=== PATIENT | male | born 1950 | race Caucasian/White ===

== ENCOUNTER 2021-05-08 08:22 | Observation (INO) ==
--- NOTE | 2021-05-07 17:01 | History & Physical Bridge Note ---
Date of Service May 07, 2021 History & Physical Bridge Note I have examined the patient, reviewed the History & Physical and in the interval since the performance of the History & Physical I have noted the following changes of clinical significance: no changes noted Results of Lexiscan nuclear stress test from May 02, 2021 noted below: Abnormal low intensity exercise/Lexiscan myocardial perfusion imaging study with evidence of a moderate-sized lateral reversible perfusion defect consistent with ischemia in the circumflex coronary territory. Quantitative analysis suggests that 30% of the circumflex territory is involved and that is completely reversible. Gated SPECT imaging reveals normal myocardial thickening and wall motion. The left ventricular ejection fraction was calculated to be 72%.
--- NOTE | 2021-05-08 09:45 | Pre Anesthesia Assessment ---
Date of Service May 08, 2021 Pre Sedation Assessment Vital Signs Temp Pulse Pulse Resp BP Pulse Ox Pulse Ox 05/09/21 07:47 157/89 H 05/09/21 07:44 36.5 C 63 16 95 05/09/21 03:15 36.7 C 72 16 138/81 97 05/08/21 23:04 36.6 C 58 L 20 126/80 96 05/08/21 23:00 67 05/08/21 19:50 36.8 C 60 18 120/64 96 05/08/21 17:03 65 05/08/21 15:54 36.8 C 65 18 138/73 98 98 05/08/21 14:45 60 16 118/69 95 05/08/21 14:30 59 L 16 119/75 95 05/08/21 14:15 57 L 16 122/73 95 05/08/21 14:00 53 L 16 123/70 95 05/08/21 13:45 53 L 16 128/72 95 05/08/21 13:30 70 16 115/67 95 05/08/21 13:15 59 L 16 113/75 95 05/08/21 13:00 58 L 16 111/63 95 05/08/21 12:45 75 16 127/76 95 05/08/21 12:30 66 16 128/65 95 05/08/21 12:15 69 16 121/71 94 05/08/21 12:00 58 L 16 105/67 94 05/08/21 11:45 59 L 16 109/55 L 94 05/08/21 11:30 65 16 112/65 94 Cardiovascular + regular rate and + regular rhythm + S1 normal, + S2 normal and + murmur (1/6 [place]) + PMI normal + femoral pulses present and + radial pulses present no edema Respiratory + respiratory effort normal; no respiratory distress, no labored breathing and no retractions no crackles, no rales, no rhonchi and no wheezes Pre-Sedation Airway Assessment Smoking Status: Never smoker Hx Sleep Apnea: No Short, Thick Neck: No Thyromental Distance: > or= 3.5 Finger Breadths Oral Cavity: + WNL Mallampati Class: II ASA: ASA3 NPO Status Date of Last Intake of Fluids: 05/08/21 Time of Last Intake of Fluids: 07:00 Last Oral Intake of Fluids Comment: sip with meds Date of Last Intake of Solid Food: 05/07/21 Time of Last Intake of Solid Foods: 22:00 Procedure Planning Contraindications for Sedation: none Current Medications Reviewed: Yes Notes The planned sedation has been discussed with the patient. Informed Consent was obtained. I have identified the patient, determined the appropriateness of sedation and have assessed the patient immediately prior to the procedure. All medicine(s) and interventions are by my order.
[2021-05-08] MEDS ORDERED: niCARdipine HCL INJ 2.5 MG/ML 10 ML AMP ONE (09:50)
[2021-05-08] MEDS ORDERED: fentaNYL citrate 100 MCG/2 ML VIAL ONE (09:50)
[2021-05-08] MEDS ORDERED: HEPARIN (PORCINE) 1000 UNIT/ML 10 ML (CATH LAB USE ONLY) ONE (09:50)
[2021-05-08] MEDS ORDERED: MIDAZOLAM HCL 1 MG/ML 2ML VIAL ONE (09:50)
[2021-05-08] MEDS ORDERED: NITROGLYCERIN/D5W 100MCG/ML 20ML SYR ONE (09:51)
--- NOTE | 2021-05-08 10:39 | Post Anesthesia Assessment ---
Date of Service May 08, 2021 Post Sedation Assessment Vital Signs Temp Pulse Pulse Resp BP Pulse Ox Pulse Ox 05/09/21 07:47 157/89 H 05/09/21 07:44 36.5 C 63 16 95 05/09/21 03:15 36.7 C 72 16 138/81 97 05/08/21 23:04 36.6 C 58 L 20 126/80 96 05/08/21 23:00 67 05/08/21 19:50 36.8 C 60 18 120/64 96 05/08/21 17:03 65 05/08/21 15:54 36.8 C 65 18 138/73 98 98 05/08/21 14:45 60 16 118/69 95 05/08/21 14:30 59 L 16 119/75 95 05/08/21 14:15 57 L 16 122/73 95 05/08/21 14:00 53 L 16 123/70 95 05/08/21 13:45 53 L 16 128/72 95 05/08/21 13:30 70 16 115/67 95 05/08/21 13:15 59 L 16 113/75 95 05/08/21 13:00 58 L 16 111/63 95 05/08/21 12:45 75 16 127/76 95 05/08/21 12:30 66 16 128/65 95 05/08/21 12:15 69 16 121/71 94 05/08/21 12:00 58 L 16 105/67 94 05/08/21 11:45 59 L 16 109/55 L 94 05/08/21 11:30 65 16 112/65 94 Recovery Score Activity: Moves 4 extremities Respiration: Deep Breath/Cough Circulation: +/-20% PreAnes Value Consciousness: Fully Awake Oxygen Saturation: > 92% On Room Air Discharge Sedation Level of Care: Phase I Post Sedation Plan On clinical assessment, the patient appears to have tolerated the sedation without complications. Patient is recovering as anticipated. Patient will continue to be monitored by nursing and may be discharged when sedation discharge criteria are met per below protocol. Upon Completions of procedure up to 15 minutes continue every 5 minute vital signs and the P.A.R. score; then discharge to a Phase I or Fast Track to Phase II per the following guidelines: * Discharge Patient to appropriate Phase II area if PAR is 8 or greater or return to pre- procedure baseline. The post - procedure orders will be as directed. * If PAR score is less than 8 or not return to pre-procedure baseline then patient will follow Phase I monitoring till PAR is reached for Phase II. The Phase I may be done in procedure room or may call to secure a Phase I area. * If naloxone or flumazenil are used for reversal, hold in Phase I for continued monitoring from when last reversal dose was given for a minimum of 60 minutes or longer pending the nurse and/or physician discretion of patient condition before discharge to Phase II. Please call the Sedation Physician to re-evaluate and complete post-note for discharge to Phase II area. Do NOT discharge from procedure sedation or Phase 1 until post- sedation evaluation note is complete by procedure /sedation MD Sedation Discharge Instructions to be given to the patient at discharge to home.
--- NOTE | 2021-05-08 10:53 | Cardiac Catheterization ---
Cardiac Cath Procedure Full Procedure Date May 08, 2021 Pre-Procedure Diagnosis Pre-Procedure Diagnosis: Angina and Positive Stress Test AUC Score AUC Score: 7 Post-Procedure Diagnosis Post-Procedure Diagnosis: Severe CAD and Elevated Intracardiac Pressures Procedure(s) Performed Procedure(s) Performed: Coronary Angiography and Left Heart Cath Manager Diabetes Von Cote DO Supervisor Sewer Maintenance(s) Kenroy RTKaterina Estimated Blood Loss Estimated Blood Loss: 6cc Medication(s) Medication(s): Fentanyl, Heparin, Lidocaine 1%, Nicardipine, Nitroglycerin and Versed Summary of Findings 80% mid Lcx Hemodynamics Rest Ao:: 90/47/72 Final Ao: 103/51/71 LV: 102/3/14 Recommendations Recommendations: PCI without planned CABG Specimens Specimens: None Radiation Exposure (mGy) 1213 Contrast (mls) 50 Fluids (cc crystalloids) Fluids (cc crystalloids): 70 Nss Drains Drains: N/A Anesthesia Moderate sedation. Start 1009. End 1054. Sedation monitor: Iker PEREIRA Procedural Complication(s) None Disposition Patient remained in [facility] for PCI of the left circumflex I attest to the content of the Intraoperative Record and any orders documented therein. Any exceptions are noted below. ACC Data: [facility] Cardiac Status Clinical evaluation leading to the procedure 69-year-old gentleman seen in the emergency department regarding chest pain. Discharge from the ER follow-up with cardiology the following day. Lexiscan nuclear stress test performed for further stratification demonstrating moderate lateral wall reversible defect suggesting circumflex territory ischemia. CAD Presenation: Positive Stress Test and Unstable angina Anginal Classification: CCS IV Heart Failure: No Coronary Anatomy Dominant: Right Left Main (% Stenosis): Normal LAD (% Stenosis): Mid (30% early mid, 30% late mid) and Distal (40%) D1 (% Stenosis): Normal Circumflex (% Stenosis): Mid (80%) and Distal (30%) L PL1 (% Stenosis): Normal L PL2 (% Stenosis): Normal RCA (% Stenosis): Proximal (10%), Mid (20% diffuse) and Distal (10%) R PDA (% Stenosis): Normal R PL1 (% Stenosis): Normal R PL2 (% Stenosis): Normal Ramus (% Stenosis): Normal Diagnostic Physicians Name: Von Cote DO Closure Device Percutaneous Entry Location: Radial Closure Device: Radial Band Recommendations: PCI without planned CABG Intraprocedure Events Significant Disection: No Perforation: No
[2021-05-08] MEDS ORDERED: CLOPIDOGREL BISULFATE 300 MG TAB ONE (11:19)
--- NOTE | 2021-05-08 12:54 | Post Anesthesia Assessment ---
Date of Service May 08, 2021 Post Sedation Assessment Vital Signs Temp Pulse Resp BP Pulse Ox 05/08/21 12:45 75 16 127/76 95 05/08/21 12:30 66 16 128/65 95 05/08/21 12:15 69 16 121/71 94 05/08/21 12:00 58 L 16 105/67 94 05/08/21 11:45 59 L 16 109/55 L 94 05/08/21 11:30 65 16 112/65 94 05/08/21 08:34 97.9 F 63 16 145/75 H 97 Recovery Score Activity: Moves 4 extremities Respiration: Deep Breath/Cough Circulation: +/-20% PreAnes Value Consciousness: Fully Awake Oxygen Saturation: > 92% On Room Air Post Anesthesia Score: 10 Discharge Sedation Level of Care: Phase I Post Sedation Plan On clinical assessment, the patient appears to have tolerated the sedation without complications. Patient is recovering as anticipated. Patient will continue to be monitored by nursing and may be discharged when sedation discharge criteria are met per below protocol. Upon Completions of procedure up to 15 minutes continue every 5 minute vital signs and the P.A.R. score; then discharge to a Phase I or Fast Track to Phase II per the following guidelines: * Discharge Patient to appropriate Phase II area if PAR is 8 or greater or return to pre- procedure baseline. The post - procedure orders will be as directed. * If PAR score is less than 8 or not return to pre-procedure baseline then patient will follow Phase I monitoring till PAR is reached for Phase II. The Phase I may be done in procedure room or may call to secure a Phase I area. * If naloxone or flumazenil are used for reversal, hold in Phase I for continued monitoring from when last reversal dose was given for a minimum of 60 minutes or longer pending the nurse and/or physician discretion of patient condition before discharge to Phase II. Please call the Sedation Physician to re-evaluate and complete post-note for discharge to Phase II area. Do NOT discharge from procedure sedation or Phase 1 until post- sedation evaluation note is complete by procedure /sedation MD Sedation Discharge Instructions to be given to the patient at discharge to home.
--- NOTE | 2021-05-08 12:59 | Cardiac Catheterization ---
[facility] Data: Real Estate Consultant Cardiac Status Clinical evaluation leading to the procedure Diagnostic Physicians Name: Michael Child MD Closure Device Recommendations: PCI without planned CABG Cardiac Cath Procedure Full Procedure Date May 08, 2021 Pre-Procedure Diagnosis Pre-Procedure Diagnosis: Angina and Positive Stress Test AUC Score AUC Score: 7 Post-Procedure Diagnosis Post-Procedure Diagnosis: Severe CAD and Successful PCI Procedure(s) Performed Procedure(s) Performed: Coronary Angiography and Drug Eluting Stent Fibrous Plasterer Michael Child MD Marine Water Tender(s) Kenroy RTR Estimated Blood Loss Estimated Blood Loss: 10 Medication(s) Medication(s): Fentanyl, Heparin, Nicardipine, Nitroglycerin and Versed Summary of Findings Indication: Angina, abnormal stress test with lateral ischemia Access: 6 Fr right radial artery Catheters: EBU 3.5 guide Findings: For full details of patient's coronary angiography please see cath report dictated by Dr. Cote. Briefly, patient found to have severe single-vessel disease with 80% mid circumflex stenosis. Decision to proceed with PCI. -- PCI -- Antithrombotic therapy: Heparin, clopidogrel Procedure: Left main cannulated with EBU 3.5 guide Loss Prevention Coordinator 50 wire passed across lesion into distal vessel Mid circumflex lesion predilated with 2.5 compliant balloon Dilated lesion stented with 2.5 x 18 mm [place] drug-eluting stent Stent post-dilated with 2.75 noncompliant balloon IC vasodilators administered for spasm Post procedure ALMA ROSA 3 flow, stent well expanded with minimal residual stenosis and no apparent cardiac complications. Arterial Closure: TR band Summary: 1. Successful PCI of mid circumflex with single drug-eluting stent (2.5 x 18 mm Bryant; postdilated with a 2.75 NC). Recommendations: Loaded with clopidogrel 600 mg in Real Estate Consultant Consult cardiac Rehab Recommendations Recommendations: PCI without planned CABG Specimens Specimens: None Fluids (cc crystalloids) Fluids (cc crystalloids): 70 Nss Drains Drains: N/A Anesthesia Moderate sedation. Start 1009. End 1054. Sedation monitor: Iker PEREIRA Procedural Complication(s) None Disposition Patient remained in [facility] for PCI of the left circumflex I attest to the content of the Intraoperative Record and any orders documented therein. Any exceptions are noted below. PG Care Time/CCT Total # of Minutes Spent Total Time Spent with Patient: Total time spent is greater than 50% in coordination of care (as documented) at patient's floor/unit and/or counseling patient:
[2021-05-08] MEDS ORDERED: ACETAMINOPHEN 325 MG TAB PO PRN (15:54)
[2021-05-08] MEDS ORDERED: ONDANSETRON INJ 2 MG/ML 2 ML VIAL IV PRN (15:54)
[2021-05-08] MEDS ORDERED: NITROGLYCERIN SL 0.4 MG/TAB TAB SL PRN (15:54)
[2021-05-08] MEDS ORDERED: PHARMACY GLYCEMIC MGMT CONSULT PRN (16:07)
[2021-05-08] MEDS ORDERED: LORazepam 0.5 MG TAB PO PRN (16:17)
--- NOTE | 2021-05-08 16:23 | History & Physical Report ---
Date of Service May 08, 2021 Assessment & Plan (1) Coronary artery disease with exertional angina: (2) Hypertension: (3) Hyperlipidemia: (4) Diabetes: Plan: (1) Coronary artery disease with exertional angina: -As noted, cardiac catheterization revealed culprit 80% mid circumflex stenosis, the correlated with recent myocardial perfusion imaging study well. Mild nonobstructive disease noted elsewhere as per cath report. Continue aspirin 81 mg daily, clopidogrel 75 mg daily (loaded in Weatherization Coordinator), metoprolol, atorvastatin. Repeat EKG on arrival to telemetry floor, and in a.m. (2) Hypertension: -Continue metoprolol, hold lisinopril HCTZ, pending results of creatinine tomorrow. Received 350 ml NS in post cath recovery unit. Will administer another liter IV. -Has history of stage IIIa CKD, creatinine 1.44 04/30/2021. (3) Hyperlipidemia: -Continue atorvastatin 40 mg daily, most recent LDL cholesterol, November,, 45 mg/dL (4) Diabetes: -Patient takes Lantus 55 units daily, and NovoLog 16 units with the evening meal at home. -Consult pharmacy with regards to assistance with glycemic control. CODE STATUS: Full code DVT prophylaxis: Not indicated, patient ambulatory, anticipate discharge 05/09/2021 Hepatitis screening: Previously performed as outpatient Admission and Anticipated Discharge Date Admission Date: May 08, 2021 History of Present Illness Primary Care Provider: Miguel Ángel Grubbs DO Ramon Vanessa is a 70 year old male who been seen by the undersigned in outpatient cardiology consultation a week ago on 05/01/2021 for recent episodes of chest discomfort. He went on to have a nuclear stress test with findings of reversible perfusion defect in the lateral wall consistent with circumflex coronary territory ischemia. He underwent diagnostic cardiac catheterization today with findings of a culprit 80% mid circumflex stenosis for which he underwent PCI and deployment of a single drug-eluting stent. He was already on aspirin. He received clopidogrel 600 mg in the cardiac catheterization laboratory at time of PCI. Post procedure he was feeling well, and had already completed the post procedure radial artery recovery protocol. Initial plan was for him to proceed with same day discharge, however patient did not have a ride or adult to accompany him home this evening and therefore he is to remain in the hospital for observation as per policy as medically appropriate. At the time my assessment and the cardiac catheterization recovery area, patient's radial artery band had already been removed, and he is feeling well. Denies any angina. Vital signs stable. Allergies Allergy/AdvReac Type Severity Reaction Status Date / Time adhesive tape Allergy Intermediate RASH/BLISTERS Verified 05/08/21 08:57 SKIN Home Medications Medication Instructions Recorded Confirmed Type aspirin 81 mg tablet,delayed 81 mg PO DAILY 04/30/21 05/08/21 History release atorvastatin 40 mg tablet 40 mg PO HS 04/30/21 05/08/21 History escitalopram oxalate 20 mg tablet 20 mg PO DAILY 04/30/21 05/08/21 History finasteride 5 mg tablet 5 mg PO DAILY 04/30/21 05/08/21 History insulin aspart U-100 100 unit/mL 16 unit SUBCUT QDD 04/30/21 04/30/21 History (3 mL) subcutaneous pen (Novolog Flexpen U-100 Insulin aspart) insulin glargine 100 unit/mL (3 See Rx Instructions .ROUTE .COMPLEX 04/30/21 04/30/21 History mL) subcutaneous pen (Lantus Solostar U-100 Insulin) lisinopril 20 1 tab PO DAILY 04/30/21 05/08/21 History mg-hydrochlorothiazide 25 mg tablet loratadine 10 mg chewable tablet 10 mg PO DAILY 04/30/21 05/08/21 History (Claritin) lorazepam 1 mg tablet 0.5 mg PO TID PRN 04/30/21 05/08/21 History tamsulosin 0.4 mg capsule 0.4 mg PO DAILY 04/30/21 05/08/21 History clopidogrel 75 mg tablet 75 mg PO DAILY #30 tab 05/08/21 Rx Past Med/Surg History Medical History Diabetes Hypertension Surgical History No significant past surgical history Social History Smoking Status: Never smoker Hx Alcohol Use: No Hx Substance Use: No marital status: Single Current Living Situation: Alone current occupational status: retired Feels Safe at Home: Yes Safety Concerns: Feels Safe At This Time Review of Systems Review of Systems: All systems reviewed & are unremarkable except as noted in HPI & below Physical Exam Constitutional: WD/WN, vitals as above Respiratory: normal respiratory effort, lungs clear to auscultation Cardiovascular: RRR, no murmur, no edema Gastrointestinal (Abdomen): normal bowel sounds, soft, nontender, no hepatosplenomegaly Skin: Right radial arterial access site, clean dry and intact, no hematoma Neurologic: PERRL, EOMI, accommodation nl, no face palsy, no dysarthria Results & Data Results & Data ([facility]) Vital Signs (Past 12 Hours) Vital Signs Temp Pulse Resp BP Pulse Ox 05/08/21 14:45 60 16 118/69 95 05/08/21 14:30 59 L 16 119/75 95 05/08/21 14:15 57 L 16 122/73 95 05/08/21 14:00 53 L 16 123/70 95 05/08/21 13:45 53 L 16 128/72 95 05/08/21 13:30 70 16 115/67 95 05/08/21 13:15 59 L 16 113/75 95 05/08/21 13:00 58 L 16 111/63 95 05/08/21 12:45 75 16 127/76 95 05/08/21 12:30 66 16 128/65 95 05/08/21 12:15 69 16 121/71 94 05/08/21 12:00 58 L 16 105/67 94 05/08/21 11:45 59 L 16 109/55 L 94 05/08/21 11:30 65 16 112/65 94 05/08/21 08:34 36.6 C 63 16 145/75 H 97 Laboratory Results Preprocedure Covid screen negative. Code Status & VTE Plan VTE Prophylaxis Plan VTE Prophylaxis will be ordered: No
[2021-05-08] MEDS ORDERED: SODIUM CHLORIDE 0.9% 1000ML 1,000 ML IV SCH (16:30)
[2021-05-08] MEDS ORDERED: DEXTROSE 50% 50 ML SYRINGE IV PRN (16:45)
[2021-05-08] MEDS ORDERED: GLUCOSE 10 TABS/TUBE PO PRN (16:45)
[2021-05-08] MEDS ORDERED: GLUCAGON FOR INJ 1 MG VIAL IM PRN (16:45)
[2021-05-08] MEDS ORDERED: GLUCOSE 40% GEL 15 GM TUBE PO PRN (16:45)
[2021-05-08] MEDS ORDERED: CARBOHYDRATES FOR HYPOGLYCEMIA PO PRN (16:45)
--- NOTE | 2021-05-08 17:05 | Electrocardiogram Report ---
Test Reason : Blood Pressure : / mmHG Vent. Rate : 066 BPM Atrial Rate : 066 BPM P-R Int : 204 ms QRS Dur : 080 ms QT Int : 390 ms P-R-T Axes : 067 027 036 degrees QTc Int : 408 ms Sinus rhythm with Premature atrial complexes Poor R wave progression, consider anterior PR vs. lead placement vs. LVH Abnormal ECG When compared with ECG of 30-APR-2021 15:06, ST no longer elevated in Inferior leads ST no longer depressed in Lateral leads Confirmed by Michael Corbett ([id number]) on 05/08/2021 5:05:18 PM Referred By: Arsen Garcia Confirmed By:Porfirio Corbett
--- NOTE | 2021-05-08 17:11 | Communication Note ---
Date of Service: May 08, 2021 EKG reviewed, SR with PACs, stable findings.
--- NOTE | 2021-05-08 17:18 | Pharmacy Report ---
Pharmacy Glycemic Short Note 2 - Date of Service May 08, 2021 - Glycemic Short BSG Results (Last 24 hours): 05/08/21 16:42 POC Glucose 173 H OUTPATIENT ANTIDIABETIC REGIMEN: * Lantus 25 units SC AM + 30 units SC PM * Novolog 16 units SC w/ biggest meal of the day (supper) * HbA1c pending ASSESSMENT: * 70 yo M admitted s/p cardiac catheterization today. Pharmacy has been consulted to assist with inpatient glycemic management. * Patient is ordered a T2DM/Heart Healthy diet post-op. Post op BSG was 173 mg/dL. Did not take AM dose of Lantus so likely basal deficient. * Will give full home dose of Lantus 30 units this evening. Will allow floor pharmacist to determine need for further basal dosing tomorrow morning. * Novolog sliding scale insulin will be administered with meals based on weight and stress of 2. Will add an overnight check for tonight only. PLAN FOR INPATIENT GLYCEMIC CONTROL: * Basal insulin * Lantus 30 units SC HS * Bolus insulin * NovoLog per scale ACHS or Q6hrs while NPO * Goal Range: Low 110 mg/dL - High 140 mg/dL * Correction Factor: 25 mg/dL/unit * Nutritional / Prandial insulin per carb ratio of 1 unit per 8 grams CHO consumed
[2021-05-08] MEDS: INSULIN ASPART PER UNIT SC SCH ×2 (17:38→21:40)
[2021-05-08] MEDS ORDERED: ATORVASTATIN 40 MG TAB PO SCH (21:00)
[2021-05-08] MEDS ORDERED: INSULIN GLARGINE SOLOSTAR 100 UNITS/ML 3 ML PEN SC SCH ×2 (21:00)
[2021-05-08] MEDS ORDERED: INSULIN ASPART PER UNIT SC SCH (21:00)
[2021-05-09] MEDS ORDERED: INSULIN ASPART PER UNIT SC SCH (02:00)
[2021-05-09 07:32] LABS: Estimated Average Glucose 180 mg/dl; Hemoglobin A1C 7.9 % (4.5-5.6)
[2021-05-09 07:35] LABS: Hematocrit (blood only) 39.8 % (42-52); Hemoglobin 14.2 g/dL (14.0-18.0); Mean Corpuscular Hemoglobin 31.2 pg (25-34); Mean Corpuscular Hgb Conc 35.7 g/dL (32-36); Mean Corpuscular Volume 87.5 fL (80-100); Mean Platelet Volume 10.4 fL (7.4-10.4); Platelet Count 112 K/uL (130-400); RDW Coefficient of Variation 13.2 % (11.5-14.5); RDW Standard Deviation 42.3 fL (36.4-46.3); Red Blood Count 4.55 M/uL (4.7-6.1)
[2021-05-09 07:56] LABS: Calcium 8.7 mg/dl (8.5-10.1); Creatinine Clr Calc Pharmacy 59.8 ml/min; Est GFR (African American) 64.8 ml/min; Est GFR (Non-African American) 55.9 ml/min
[2021-05-09] MEDS ORDERED: LORATADINE 10 MG TAB PO SCH (09:00)
[2021-05-09] MEDS ORDERED: METOPROLOL SUCC 25MG EXT REL TAB PO SCH (09:00)
[2021-05-09] MEDS ORDERED: CLOPIDOGREL BISULFATE 75 MG TAB PO SCH (09:00)
[2021-05-09] MEDS ORDERED: TAMSULOSIN HCL 0.4 MG CAP PO SCH (09:00)
[2021-05-09] MEDS ORDERED: ESCITALOPRAM OXALATE 20 MG TAB PO SCH (09:00)
[2021-05-09] MEDS ORDERED: LISINOPRIL/HCTZ 20/25MG 1 TAB PO SCH (09:00)
[2021-05-09] MEDS ORDERED: ASPIRIN 81 MG ECTAB PO SCH (09:00)
[2021-05-09] MEDS ORDERED: FINASTERIDE 5 MG TAB PO SCH (09:00)
[2021-05-09] MEDS ORDERED: INSULIN GLARGINE SOLOSTAR 100 UNITS/ML 3 ML PEN SC SCH (09:00)
[2021-05-09] MEDS: INSULIN ASPART PER UNIT SC SCH (09:12)
--- NOTE | 2021-05-09 10:02 | Cardiology Progress Note ---
Date of Service May 09, 2021 Assessment & Plan (1) Presence of drug coated stent in left circumflex coronary artery: (2) Coronary artery disease with exertional angina: (3) Hypertension: (4) Hyperlipidemia: (5) Diabetes: Plan: Patient status post stenting of the left circumflex. No recurrent anginal symptoms. Discussed importance of continuing dual antiplatelet therapy for minimum of 6 months post percutaneous intervention. Other cardiovascular medications including DIANA inhibitor and statin therapy will be continued as previously ordered. Post procedural activity restrictions reviewed. Restrictions listed in discharge summary. Prescription for clopidogrel sent to [facility] pharmacy. All questions answered to patient satisfaction. He will be discharged home today. Outpatient follow-up with Dr. Garcia. Admission and Anticipated Discharge Date Admission Date: May 08, 2021 Subjective Patient seen examined the bedside. Drug-eluting stent implanted to the mid left circumflex 05/08/2021 without complication. No chest discomfort overnight. No wrist ecchymosis or hematoma. Telemetry revealed demonstrating sinus rhythm with occasional PACs and PVCs. Patient tolerating medication and diet. Offers no concerns/complaints. Review of Systems Review of Systems: All systems reviewed & are unremarkable except as noted in Subjective Physical Exam Constitutional: well developed and well nourished; no acute distress Respiratory: normal respiratory effort; no respiratory distress, no labored breathing and no retractions Auscultation: no crackles, no rales, no rhonchi and no wheezes Cardiovascular: Rate/Rhythm: regular rate and regular rhythm Heart Sounds: normal S1, normal S2 and + murmur (1/6 [place]) Palpation: normal PMI Vessels: femoral pulses present and radial pulses present (No ecchymosis or hematoma) Extremities: no edema Gastrointestinal (Abdomen): Inspection/Auscultation: abdomen normal to inspection and normal bowel sounds; abdomen not distended Percussion/Palpation: abdomen soft; abdomen nontender, no guarding and abdomen not rigid Neurologic: CN's II-XI intact bilaterally and moves all extremities; no focal motor deficits Motor/Sensory: + tremor Psychiatric: A+Ox3, euthymic affect Results & Data ([facility]) Vital Signs (Past 12 Hours) Vital Signs Temp Pulse Pulse Resp BP Pulse Ox 05/09/21 07:47 157/89 H 05/09/21 07:44 36.5 C 63 16 95 05/09/21 03:15 36.7 C 72 16 138/81 97 03/24/22 23:04 36.6 C 58 L 20 126/80 96 05/08/21 23:00 67
--- NOTE | 2021-05-09 10:04 | Discharge Summary ---
Date of Service May 09, 2021 Admission HPI Per Admitting Provider Ramon Vaenssa is a 70 year old male who been seen by the undersigned in outpatient cardiology consultation a week ago on 05/01/2021 for recent episodes of chest discomfort. He went on to have a nuclear stress test with findings of reversible perfusion defect in the lateral wall consistent with circumflex coronary territory ischemia. He underwent diagnostic cardiac catheterization today with findings of a culprit 80% mid circumflex stenosis for which he underwent PCI and deployment of a single drug-eluting stent. He was already on aspirin. He received clopidogrel 600 mg in the cardiac catheterization laborato ry at time of PCI. Post procedure he was feeling well, and had already completed the post procedure radial artery recovery protocol. Initial plan was for him to proceed with same day discharge, however patient did not have a ride or adult to accompany him home this evening and therefore he is to remain in the hospital for observation as per policy as medically appropriate. At the time my assessment and the cardiac catheterization recovery area, patient's radial artery band had already been removed, and he is feeling well. Denies any angina. Vital signs stable. Principal Diagnosis Coronary artery disease Chest pain Abnormal Lexiscan nuclear stress test suggesting lateral ischemia Status post drug-eluting stent implantation to the left circumflex Dyslipidemia Type 2 diabetes Discharge Exam Constitutional well developed and well nourished; no acute distress ENMT Mallampati Class: II Respiratory normal respiratory effort; no respiratory distress, no labored breathing and no retractions Auscultation: no crackles, no rales, no rhonchi and no wheezes Cardiovascular Rate/Rhythm: regular rate and regular rhythm Heart Sounds: normal S1, normal S2 and + murmur (1/6 [place]) Palpation: normal PMI Vessels: femoral pulses present and radial pulses present (No ecchymosis or hematoma) Extremities: no edema Gastrointestinal (Abdomen) Inspection/Auscultation: abdomen normal to inspection and normal bowel sounds; abdomen not distended Percussion/Palpation: abdomen soft; abdomen nontender, no guarding and abdomen not rigid Neurologic CN's II-XI intact bilaterally and moves all extremities; no focal motor deficits Motor/Sensory: + tremor Psychiatric A+Ox3, euthymic affect Discharge Data Allergies Allergy/AdvReac Type Severity Reaction Status Date / Time adhesive tape Allergy Intermediate RASH/BLISTERS Verified 05/08/21 08:57 SKIN Procedures Performed Operation Date: 05/08/21 09:30 Actual Procedures p Cath, Left with Cors and Vent - Von Cote DO s Drug Eluting Stent SGl Vessel - Antoni Child MD s Cineradiography w/Routine Exam - Antoni Child MD Ordered Studies 05/08/21 09:28 CL Cath Imgs for PACS use only Routine Diabetes Follow up Primary care physician Hospital Course (1) Presence of drug coated stent in left circumflex coronary artery: (2) Coronary artery disease with exertional angina: (3) Hypertension: (4) Hyperlipidemia: (5) Diabetes: Patient status post stenting of the left circumflex. No recurrent anginal symptoms. Discussed importance of continuing dual antiplatelet therapy for minimum of 6 months post percutaneous intervention. Other cardiovascular medications including DIANA inhibitor and statin therapy will be continued as previously ordered. Post procedural activity restrictions reviewed. Restrictions listed in discharge summary. Prescription for clopidogrel sent to [facility] pharmacy. All questions answered to patient satisfaction. He will be discharged home today. Outpatient follow-up with Dr. Garcia. Total Time Total Time Spent Total Time Spent (In Minutes): 25 Discharge Plan Discharge Items Patient Disposition: Home - Self-Care Reason For Visit: CORONARY STENT Discharge Diagnosis: Coronary artery disease status post cardiac catheterization with drug-eluting stent implantation to the left circumflex Condition on Discharge: Good Activity: Per Instructions section Non-emergency contact: Interactive Graphic Designer Call non-emergency contact if: you have any medication questions, your symptoms worsen and your pain is unusual for you Follow-up/Referrals: Miguel Ángel Grubbs DO [Primary Care Provider] - Diet: Heart Healthy Add Attending Provider Instructions: ACTIVITY RECOMMENDATIONS: It is common to feel weak and fatigue for a few days. * Do not drive or operate any motorized equipment for the next three days. * Limit stair usage (2 or 3 trips a day only) for the next three days. * Do not lift anything heavier than 10 pounds for the next three days. * Do not engage in vigorous exercise or any sports for the next five days. * You may shower the day after your procedure, but do not immerse the area for three days. Cleanse the site gently with soap and water. SPECIAL CARE INSTRUCTIONS: * You may replace the pressure dressing or band-aid the morning after the procedure. * After your procedure, it is normal to have a small bruise or small lump at the site. Examine your site daily for any change in the bruise or lump, redness, swelling, drainage or numbness. Notify your doctor if any change. BLEEDING: * If there is a small amount of bleeding at the site, lie down and apply firm pressure with a clean cloth for ten minutes. When the bleeding stops, lie quietly keeping the procedure limb straight for six hours. Notify your doctor as soon as possible. * If the bleeding does not stop after ten minutes or if there is a large amount of bleeding or spurting, call 911 immediately. Continue to lie down and hold firm pressure until help arrives. SKIN IRRITATION: * You may experience some redness and/or swelling in the area where radiation was administered. If any skin irritation occurs, please contact your family physician. FOLLOW UP VISIT: Keep any scheduled doctor appointments. Pending Studies at Discharge: No Stand-Alone Forms: My [facility] Medications and DC Order Prescriptions: New clopidogrel 75 mg tablet 75 mg PO DAILY Qty: 30 RF: 6 Continued atorvastatin 40 mg tablet 40 mg PO HS RF: 0 aspirin 81 mg Tablet,Delayed Release (Dr/Ec) 81 mg PO DAILY RF: 0 tamsulosin 0.4 mg capsule 0.4 mg PO DAILY RF: 0 lisinopril-hydrochlorothiazide 20-25 mg tablet 1 tab PO DAILY RF: 0 lorazepam 1 mg tablet 0.5 mg PO TID PRN (Reason: Anxiety) RF: 0 finasteride 5 mg tablet 5 mg PO DAILY RF: 0 escitalopram oxalate 20 mg tablet 20 mg PO DAILY RF: 0 insulin aspart U-100 [Novolog Flexpen U-100 Insulin] 100 unit/mL (3 mL) insulin pen 16 unit SUBCUT QDD RF: 0 Lantus Solostar U-100 Insulin 100 unit/mL (3 mL) insulin pen See Rx Instructions .ROUTE .COMPLEX RF: 0 Claritin 10 mg Tablet,Chewable 10 mg PO DAILY RF: 0 Discharge Orders: Discharge Order (Routine); Ordered 05/09/21 Ordered By: Von Olmedo/Other Patient Handouts: Managing Type 2 Diabetes Admission Data Admit Date/Time: 05/08/21 15:59 Attending Provider: Arsen Garcia Admit Provider: Arsen Garcia Primary Care Provider: Grubbs,Miguel Ángel S. Other Providers: Von Cote
--- NOTE | 2021-05-09 13:34 | Electrocardiogram Report ---
Test Reason : Blood Pressure : / mmHG Vent. Rate : 066 BPM Atrial Rate : 066 BPM P-R Int : 192 ms QRS Dur : 086 ms QT Int : 412 ms P-R-T Axes : 059 026 034 degrees QTc Int : 431 ms Sinus rhythm with Premature atrial complexes Otherwise normal ECG When compared with ECG of 08-MAY-2021 14:11, No significant change was found Confirmed by Michael Corbett ([id number]) on 05/09/2021 1:34:15 PM Referred By: Arsen Garcia Confirmed By:Porfirio Corbett
== END 2021-05-09 11:31 | disposition home or self-care (01) ==
LOC: CC 08:22 → 2S 08:22
DX: Z95.5 Presence of coronary angioplasty implant and graft; I10 Essential (primary) hypertension; Z91.048 Other nonmedicinal substance allergy status; E11.9 Type 2 diabetes mellitus without complications; I25.110 Atherosclerotic heart disease of native coronary artery with unstable angina pectoris; Z79.899 Other long term (current) drug therapy; Z79.82 Long term (current) use of aspirin; E78.5 Hyperlipidemia, unspecified; Z79.4 Long term (current) use of insulin